=== PATIENT | female | born 1990 | race Caucasian/White ===

== ENCOUNTER → 2017-10-08 | Outpatient (CLI) | payer BC | LOC: COL.RAD 14:49 | DX: E04.9 Nontoxic goiter, unspecified (principal) ==

== ENCOUNTER → 2017-10-29 | Outpatient (CLI) | payer BC ==
[~2017-10-29] VITALS: Ht 157.5 cm; Wt 63.6 kg
[~2017-10-29] MED LIST: IRON TABLETS325 MG PO; NIKKI1 TAB PO; VTAMINC250TA PO
[2017-10-29 13:06] VITALS: BP 141/91; PULSE 72
== END ==
LOC: COL.RAD 11:46
DX: C73 Malignant neoplasm of thyroid gland (principal)

== ENCOUNTER → 2017-11-11 | Outpatient (REF) ==
[2017-11-11 16:19] LABS: ALBUMIN 3.5 gm/dL (3.5-5.0); CALCIUM 9.3 mg/dL (8.4-10.2)
[2017-11-12 06:11] LABS: CALCIUM 7.9 mg/dL (8.4-10.2); PHOSPHOROUS 4.8 mg/dL (2.5-4.5)
== END ==
LOC: ZMSC 15:51
PROVIDERS: Student in an Organized Health Care Education/Training Program
DX: Z01.89 Encounter for other specified special examinations (principal)

== ENCOUNTER → 2017-11-12 | Outpatient (REF) ==
[2017-11-12 16:39] LABS: ALBUMIN 3.2 gm/dL (3.5-5.0)
== END ==
LOC: ZMSC 15:52
PROVIDERS: Student in an Organized Health Care Education/Training Program
DX: Z01.89 Encounter for other specified special examinations (principal)

== ENCOUNTER 2017-12-28 13:00 | Outpatient (RCR) | payer BC ==
[2017-12-27 13:04] VITALS: BP 124/83; PULSE 77; TEMP 97.8
[~2017-12-28] VITALS: Ht 157.5 cm; Wt 67.1 kg
[~2017-12-28 13:00] MED LIST changes: +OSCAL W/VIT D250 MG PO
[2017-12-28 13:16] VITALS: BP 119/79; PULSE 72; TEMP 98.8
== END 2017-12-29 18:00 | disposition home or self-care (01) ==
LOC: EUO 13:00
DX: C73 Malignant neoplasm of thyroid gland (principal)
CPT/HCPCS: J3240

== ENCOUNTER → 2017-12-29 | Outpatient (CLI) | payer BC | LOC: COL.RAD 13:07 | DX: C73 Malignant neoplasm of thyroid gland (principal); E89.0 Postprocedural hypothyroidism | CPT/HCPCS: A9517 ==

== ENCOUNTER → 2018-01-05 | Outpatient (CLI) | payer BC | LOC: COL.RAD 12:11 | PROVIDERS: Student in an Organized Health Care Education/Training Program | DX: C73 Malignant neoplasm of thyroid gland (principal) ==

== ENCOUNTER 2019-11-03 16:38 | Outpatient (CLI) | payer BC ==
[~2019-11-03] VITALS: Ht 160 cm; Wt 85.5 kg
--- NOTE | 2019-11-03 16:45 | NUR ---
Patient ambulatory to the unit with at side. Patient sent from the office for BP evaluation. Patient report good movement, no leakage of fluid or vaginal bleeding and no contractions. EFMs on and tracing, vital signs taken, labs drawn by cook house laborer and UA sent to lab.
[2019-11-03] MEDS ORDERED: SYNTHROID0.137 MG PO (16:57)
[2019-11-03] MEDS ORDERED: PRENATAL VITAMI1 TA3 PO (16:59)
[2019-11-03 17:00] VITALS: BP 129/72; PULSE 96; TEMP 98.5
--- NOTE | 2019-11-03 17:00 | NUR ---
Patient having irregular contractions tracing on the monitor. Patient denies any back pain, tightening, cramping, or pain. Abdomen palpates soft.
[2019-11-03 17:09] LABS: COLLECTION METHOD CLEAN CATCH
[2019-11-03 17:15] VITALS: BP 109/64; PULSE 85
[2019-11-03 17:17] LABS: BASO % 0.3 % (0.0-2.0); EOS # 0.1 (0.0-0.7); EOS % 0.7 % (0-4.0); GRAN # 7.3 (1.4-6.5); GRAN % 76.6 % (42.2-75.2); HEMOGLOBIN 11.2 g/dl (12.5-16.0); LYMPH # 1.6 (1.2-3.4); LYMPH % 16.2 % (20.0-51.0); MEAN CELL VOLUME 86 fl (80.0-100.0); MEAN CORPUSCULAR HEMOGLOBIN 29 pg (27.0-31.0); MEAN CORPUSCULAR HGB CONC 33 g/dl (33.0-37.0); MEAN PLATELET VOLUME 8.7 fl (7.4-10.4); MONO # 0.5 (0.1-0.6); MONO % 5.3 % (1.7-9.3); PLATELET COUNT 284 K/mm3 (130-400); RED BLOOD COUNT 3.91 M/mm3 (4.10-5.30); REDCELL DISTRIBUTION WIDTH-CV 13.9 % (11.5-14.5)
[2019-11-03 17:19] LABS: HEMATOCRIT 33.6 % (37.0-47.0)
[2019-11-03 17:23] LABS: MUCOUS Present /lpf; PH 6 (5-8); URINE APPEARANCE Cloudy; URINE BACTERIA Occasional /hpf; URINE BILIRUBIN Negative (NEGATIVE); URINE BLOOD Negative (NEGATIVE); URINE COLOR Yellow; URINE GLUCOSE Negative (NEGATIVE); URINE KETONE Negative (NEGATIVE); URINE LEUKOCYTE ESTERASE 2+ (NEGATIVE); URINE NITRATE Negative (NEGATIVE); URINE PROTEIN(semi-quant) Negative (NEGATIVE); URINE UROBILINOGEN Negative (NEGATIVE)
[2019-11-03 17:35] VITALS: BP 109/66; PULSE 78
[2019-11-03 17:35] LABS: ALBUMIN 3.6 gm/dL (3.5-5.0); BILIRUBIN,TOTAL 0.3 mg/dL (0.0-1.0); CALCIUM 8.4 mg/dL (8.4-10.2); CREATININE, serum 0.42 (0.52-1.25); POTASSIUM 3.7 mmol/L (3.4-5.0); TOTAL PROTEIN 6.9 gm/dL (6.4-8.2)
--- NOTE | 2019-11-03 17:50 | NUR ---
Patient given discharge instructions and return precautions. Patient instructed to call/return with headache, dizziness, blurred vision, ruq pain, n/v, decreased movement, leaking of fluid, vaginal bleeding, or contractions. Patient verbalized understanding. Questions answered. Patient ambulatory off of unit with at side at this time.
== END 2019-11-03 17:50 | disposition home or self-care (01) ==
LOC: LDRO 16:38 → LDR 16:40 → LDRO 17:50 → LDR 17:50
PROVIDERS: Obstetrics & Gynecology
DX: O26.839 Pregnancy related renal disease, unspecified trimester (principal); R03.0 Elevated blood-pressure reading, without diagnosis of hypertension; Z3A.32 32 weeks gestation of pregnancy
CPT/HCPCS: OP

== ENCOUNTER → 2020-01-03 | Outpatient (CLI) | payer BC ==
[~2020-01-03] MED LIST changes: +MOTRIN 800800 MG/TAB PO; +PERCOCET 325 MG1 TA2 PO; +PRENATAL VITAMI1 TA3 PO; +SYNTHROID0.137 MG PO
== END ==
LOC: ZCOL.LAB 08:00
DX: Z20.828 Contact with and (suspected) exposure to other viral communicable diseases (principal)

== ENCOUNTER 2020-10-09 14:00 | Outpatient (RCR) | payer OTHER ==
[2020-10-07 14:09] VITALS: BP 125/80; PULSE 75; TEMP 97.7
[2020-10-08 14:01] VITALS: BP 135/83; PULSE 86; TEMP 97.4
[~2020-10-09] VITALS: Ht 160 cm; Wt 78.0 kg
[~2020-10-09 14:00] MED LIST changes: +[UNRECOGNIZED DRUG - OTHER] TP
== END 2020-10-11 20:20 ==
LOC: COL.RAD 14:00
DX: C73 Malignant neoplasm of thyroid gland (principal)
CPT/HCPCS: A9516; J3240

== ENCOUNTER 2022-01-12 08:46 | Inpatient (IN) | payer OTHER ==
[~2022-01-12] VITALS: Ht 160 cm; Wt 91.8 kg
[2022-01-16] VITALS (16 sets, daily range): BP systolic 108–127; BP diastolic 56–76; PULSE 57–86; TEMP 97.5–98.2
--- NOTE | 2022-01-16 06:30 | NUR ---
0630 RECEIVED REPORT FORM HERNANDEZ CORTES. EFM AND TOCO TRACING AT THIS TIME. EFM TRACING CATEGORY 1. LR BOLUS RUNNING. PT UPDATED ON POC AND COMFORTABLE. WILL CONTINUE TO MONITOR,
[2022-01-16] MEDS ORDERED: PRENATAL TABLET PO (06:34)
[2022-01-16 07:05] LABS: BASO % 0.2 % (0.0-2.0); EOS # 0.1 K/mm3 (0.0-0.7); GRAN # 6.2 K/mm3 (1.4-6.5); GRAN % 70.6 % (42.2-75.2); HEMOGLOBIN 10.8 g/dl (12.5-16.0); LYMPH # 1.9 K/mm3 (1.2-3.4); LYMPH % 22.2 % (20.0-51.0); MEAN CELL VOLUME 84 fl (80.0-100.0); MEAN CORPUSCULAR HEMOGLOBIN 27 pg (27-31); MEAN CORPUSCULAR HGB CONC 32 g/dl (33.0-37.0); MEAN PLATELET VOLUME 8.8 fl (7.4-10.4); MONO # 0.4 K/mm3 (0.1-0.6); MONO % 4.9 % (1.7-9.3); PLATELET COUNT 239 K/mm3 (130-400); RED BLOOD COUNT 4.01 M/mm3 (4.10-5.30); REDCELL DISTRIBUTION WIDTH-CV 15.6 % (11.5-14.5)
[2022-01-16 07:11] LABS: HEMATOCRIT 33.6 % (37.0-47.0)
--- NOTE | 2022-01-16 14:00 | NUR ---
1400 PT SWEATY AND TAPE FALLING OFF OF IV DRESSING. HERNANDEZ QUILES, AT BEDSIDE TO ASSESS. IV CATHETER FALLING OUT AT THIS TIME SO IT WAS REMOVED, PER ETTA. WILL CONTINUE TO MONITOR.
--- NOTE | 2022-01-16 17:28 | NUR ---
1545 PT ABLE TO HOLD LEGS UP FOR 5 SECONDS BILATERALLY. REPORTS LITTLE TO NO PAIN AND READY TO GET UP TO BATHROOM. PT STABLE ON FEET AND AMBULATED WELL TO BATHROOM WHERE BAXTER WAS REMOVED AND PERICARE COMPLETED. PT CHANGED INTO NEW GOWN AND UNDERWEAR. RETURNED TO BED COMFORTABLY.
[2022-01-17 00:45] VITALS: BP 107/56; PULSE 85; TEMP 98
[2022-01-17] MEDS ORDERED: IBU600 MG PO (06:45)
[2022-01-17] MEDS ORDERED: PERCOCET 325 MG1 TA2 PO (06:45)
[2022-01-17 07:30] VITALS: BP 125/66; PULSE 75; TEMP 97.8
--- NOTE | 2022-01-17 08:49 | NUR ---
0738 PT STATES SHE TAKES 0.125MG SYNTRHOID. 0.137MG IS SCHEDULED ON EMAR. WILL NOTIFIY OB TALENT SOURCING SPECIALIST TO CHANGE EMAR.
[2022-01-17 15:26] VITALS: BP 120/61; PULSE 73; TEMP 98
[2022-01-17 19:24] LABS: HEMOGLOBIN 10.9 g/dl (12.5-16.0)
[2022-01-17 19:25] LABS: HEMATOCRIT 33.8 % (37.0-47.0)
[2022-01-17 21:04] VITALS: BP 129/73; PULSE 82; TEMP 97.9
[2022-01-18 07:13] VITALS: BP 114/71; PULSE 81; TEMP 97.8
[2022-01-18 14:50] VITALS: BP 122/73; PULSE 73; TEMP 98.1
== END 2022-01-18 16:00 | disposition home or self-care (01) | DRG 788 ==
LOC: OB 01-16 05:37
PROVIDERS: ADMIT Obstetrics & Gynecology
PROC: 10D00Z1 Extraction of Products of Conception, Low, Open Approach (ICD-10-PCS; principal; 2022-01-16)
DX: O34.211 Maternal care for low transverse scar from previous cesarean delivery (principal); O36.5930 Maternal care for other known or suspected poor fetal growth, third trimester, not applicable or unspecified; O99.02 Anemia complicating childbirth; D64.9 Anemia, unspecified; Z3A.38 38 weeks gestation of pregnancy; Z37.0 Single live birth; Z86.16 Personal history of COVID-19; Z85.850 Personal history of malignant neoplasm of thyroid
CPT/HCPCS: J0690; J1885; J2405; J2590; J2765; J7120